=== PATIENT | female | born 1995 | race Two or more races ===

== ENCOUNTER 2024-01-13 14:54 | Emergency (ER) | payer MEDICAID, OTHER ==
[~2024-01-13] VITALS: Ht 170.2 cm; Wt 79.4 kg
[2024-01-13 14:59] VITALS: BP 129/67; TEMP 98.4; O2SAT 100
== END 2024-01-13 15:30 | disposition home or self-care (01) ==
LOC: ER 15:01
DX: S99.821A Other specified injuries of right foot, initial encounter (principal); Z60.2 Problems related to living alone; X58.XXXA Exposure to other specified factors, initial encounter; Y93.89 Activity, other specified; Y92.098 Other place in other non-institutional residence as the place of occurrence of the external cause; Y99.8 Other external cause status